=== PATIENT | male | born 1965 | race Caucasian/White ===

== ENCOUNTER 2017-10-18 12:06 | Inpatient (IN) | payer BC ==
[~2017-10-18] VITALS: Ht 182.9 cm; Wt 83.3 kg
--- NOTE | 2017-10-18 12:35 | EKG ---
[facility] [address] [place] [address] Test Date: 2017-10-18 Test Time: 12:19:47 Pat Name: OLGA BEAR Department: Room: Gender: Clinical Research Physician: : [id number] Requested By: MARS GLASS Order Number: [id number] Reading MD: Measurements Intervals [place] Rate: 53 P: 51 IN: 192 QRS: 73 QRSD: 80 T: 71 QT: 398 QTc: 375 Interpretive Statements SINUS RHYTHM NO SPECIFIC ECG ABNORMALITIES RI6.01 No previous ECG available for comparison
[2017-10-18 12:51] LABS: BASO % 1 % (0-3); EOS % 1 % (0-3); HEMATOCRIT 48.3 % (39.0-53.0); HEMOGLOBIN 16.2 g/dL (13.0-17.5); LYMPH # 1.7 x10^3/uL (1.0-4.8); LYMPH % 39 % (24-48); MEAN CORPUSCULAR HEMOGLOBIN 31 pg (25-35); MEAN CORPUSCULAR HGB CONC 33 g/dL (31-37); MEAN CORPUSCULAR VOLUME 91 fL (79-100); MONO % 10 % (0-9); NEUT % 49 % (31-73); PLATELET COUNT 197 x10^3/uL (140-400); RED BLOOD COUNT 5.29 x10^6/uL (4.30-5.70); RED CELL DISTRIBUTION WIDTH 13.3 % (11.5-14.5); WHITE BLOOD COUNT 4.5 x10^3/uL (4.0-11.0)
--- NOTE | 2017-10-18 13:35 | RAD ---
Indication: Chest pain and shortness of air. Time of exam 1324 hours. No prior studies are available for comparison. FINDINGS: The heart size is normal. The lungs are clear. No pleural effusion or pneumothorax is identified. The pulmonary vascularity is normal. IMPRESSION: No acute abnormality detected.
[2017-10-18 13:36] LABS: POTASSIUM ISTAT 4.1 mmol/L (3.5-5.0)
--- NOTE | 2017-10-18 13:44 | PHYS DOC ---
Past Medical History Past Medical History: Asthma Additional Past Medical Histor: PARKINSON'S DISEASE Past Surgical History: No Surgical History Alcohol Use: None Drug Use: None Adult General Chief Complaint Chief Complaint: chest pain HPI HPI Patient is a 52 year old male who presents with diffuse anterior chest pain with exertion. Patient states that he starts to develop this pain with lightheadedness and near syncope when he exerts himself. Yesterday he was walking up a mild incline symptoms started and they continued until the patient sat and rested. He's been experiencing this for several months, worsening in nature. No known cardiac disease, he does have associated shortness of breath and palpitations. He's not had a stress test, no known family history of early cardiac disease. He's been feeling well, does have a history of Parkinson's disease, only edition he sees his neurologist. He takes one medication for this. No history of PE or DVT. Review of Systems Review of Systems Constitutional: Denies fever or chills [] Eyes: Denies change in visual acuity, redness, or eye pain [] HENT: Denies nasal congestion or sore throat [] Respiratory: Denies cough or shortness of breath [] Cardiovascular: No additional information not addressed in HPI [] GI: Denies abdominal pain, nausea, vomiting, bloody stools or diarrhea [] : Denies dysuria or hematuria [] Musculoskeletal: Denies back pain or joint pain [] Integument: Denies rash or skin lesions [] Neurologic: Denies headache, focal weakness or sensory changes [] Allergies Allergies Allergies Coded Allergies Type Severity Reaction Last Updated Verified No Known Drug Allergies 10/18/17 No Physical Exam Physical Exam Constitutional: Well developed, well nourished, no acute distress, non-toxic appearance. [] HENT: Normocephalic, atraumatic, bilateral external ears normal, oropharynx moist, no oral exudates, nose normal. [] Eyes: PERRLA, EOMI, conjunctiva normal, no discharge. [] Neck: Normal range of motion, no tenderness, supple, no stridor. [] Cardiovascular:Heart rate regular with regular rhythm, no murmur [] Lungs & Thorax: Bilateral breath sounds clear to auscultation [] Abdomen: Bowel sounds normal, soft, no tenderness, no masses, no pulsatile masses. [] Skin: Warm, dry, no erythema, no rash. [] Back: No tenderness, no CVA tenderness. [] Extremities: No tenderness, no cyanosis, no clubbing, ROM intact, no edema. [] Neurologic: Alert and oriented X 3, normal motor function, normal sensory function, no focal deficits noted. [] Psychologic: Affect normal, judgement normal, mood normal. [] Current Patient Data Vital Signs Vital Signs Date Time Temp Pulse Resp B/P (MAP) Pulse Ox O2 Delivery O2 Flow Rate FiO2 10/18/17 12:10 97.2 58 18 132/84 (100) 98 Room Air 97.2 Lab Values Laboratory Tests Test 10/18/17 12:43 10/18/17 12:46 10/18/17 13:24 White Blood Count 4.5 x10^3/uL (4.0-11.0) Red Blood Count 5.29 x10^6/uL (4.30-5.70) Hemoglobin 16.2 g/dL (13.0-17.5) Hematocrit 48.3 % (39.0-53.0) Mean Corpuscular Volume 91 fL (79-100) Mean Corpuscular Hemoglobin 31 pg (25-35) Mean Corpuscular Hemoglobin Concent 33 g/dL (31-37) Red Cell Distribution Width 13.3 % (11.5-14.5) Platelet Count 197 x10^3/uL (140-400) Neutrophils (%) (Auto) 49 % (31-73) Lymphocytes (%) (Auto) 39 % (24-48) Monocytes (%) (Auto) 10 % (0-9) H Eosinophils (%) (Auto) 1 % (0-3) Basophils (%) (Auto) 1 % (0-3) Neutrophils # (Auto) 2.2 x10^3uL (1.8-7.7) Lymphocytes # (Auto) 1.7 x10^3/uL (1.0-4.8) Monocytes # (Auto) 0.4 x10^3/uL (0.0-1.1) Eosinophils # (Auto) 0.1 x10^3/uL (0.0-0.7) Basophils # (Auto) 0.0 x10^3/uL (0.0-0.2) POC Troponin I 0.00 ng/ml (<0.08) POC Hemoglobin 16.3 g/dL (14-18) POC Hematocrit 48 % (37-52) POC Sodium 140 mmol/L (135-145) POC Potassium 4.1 mmol/L (3.5-5.0) POC Chloride 102 mmol/L (98-110) POC Total CO2 29 mmol/L (23-32) Anion Gap 14 mmol/L (6-14) POC Blood Urea Nitrogen 15 mg/dL (8-26) POC Creatinine 1.0 mg/dL (0.5-1.4) Glucose Level 85 mg/dL (70-99) POC Ionized Calcium (Rebeca) 1.23 mmol/L (1.13-1.32) Laboratory Tests 10/18/17 12:43 Laboratory Tests 10/18/17 13:24 EKG EKG 53 bpm, sinus, normal axis, normal intervals, no ST elevation or depression, nonischemic T waves, there is a wandering baseline, not to be a flutter, interpreted by me[] Radiology/Procedures Radiology/Procedures CXr: IMPRESSION: No acute abnormality detected. [] Course & Med Decision Making Course & Med Decision Making Pertinent Labs and Imaging studies reviewed. (See chart for details) Not yet taken her aspirin today. His workup was negative but as patient continues to have recurrent symptoms, we will admit for further cardiac workup. Dr. Rendon accepted this patient for admission, cardiology consult was placed. Dragon Disclaimer Dragon Disclaimer This electronic medical record was generated, in whole or in part, using a voice recognition dictation system. Departure Departure Impression: Primary Impression: Chest pain Disposition: ADMITTED INPATIENT Admitting Physician: Shravan [place] Referrals: UNKNOWN PCP NAME (PCP) MARS GLASS MD Oct 18, 2017 13:44
[2017-10-18] MEDS ORDERED: ASPIRIN 325 MG TABLET PO ONE (13:45)
[2017-10-18] MEDS ORDERED: CARB1TAB2 PO (13:51)
[2017-10-18] MEDS ORDERED: RASA1TAB2 PO (13:52)
--- NOTE | 2017-10-18 14:05 | PDOC2 ---
CARDIAC CONSULT DATE OF CONSULT Date of Consult DATE: 10/18/17 TIME: 13:55 REASON FOR CONSULT Reason for Consult: chest pain REFERRING PHYSICIAN Referring Physician: Ariana SOURCE Source: Chart review, Patient HISTORY OF PRESENT ILLNESS HISTORY OF PRESENT ILLNESS This is a 52 yo male admitted for complains of chest pain. Reportedly he has been having chest discomfort primarily during exertion. Explains walking about 2 blocks and incline at times and verbalized chest pressure across but no jaw or arm discomfort. This is associated with some dizziness, nausea, and palpitations but no passing out. Also at time notable for photopsia and blurred vision. Also associated with GUTIERRES. This has been going on for quite sometime but it is occurring more often. It was a little unclear as far as the duration and extensiveness and timing of his symptoms as he could not verbally explained it to me with Panamanian being his primary language. All of these symptoms basically gets relieved with rest. Denies any past CAD, VTE, falls or any injury. Denies any vertigo, tinnitus during his episodes. 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 Presently while at rest, he denies any discomfort. PAST MEDICAL HISTORY Past Medical History Asthma and Parkinosn's disease PAST SURGICAL HISTORY Past Surgical History: Appendectomy FAMILY HISTORY Family History aneurysm 2 yrs ago Mother at 84 yo SOCIAL HISTORY Smoke: No ALCOHOL: occassional Drugs: None Lives: with Family ALLERGIES ALLERGIES: Coded Allergies: No Known Drug Allergies (Unverified , 10/18/17) ROS Review of System 14 point ROS evaluated with pertinent positives noted per HPI PHYSICAL EXAM General: Alert, Oriented X3, Cooperative, No acute distress HEENT: Atraumatic, Mucous membr. moist/pink Lungs: Clear to auscultation, Normal air movement Heart: Regular rate (SR), Normal S1, Normal S2, No murmurs Abdomen: Soft, No tenderness Extremities: No cyanosis, No edema Skin: No breakdown, No significant lesion Neuro: Normal speech, Sensation intact Psych/Mental Status: Mental status NL, Mood NL MUSCULOSKELETAL: Osteoarthritic changes both hands VITALS VITALS Vital Signs Date Time Temp Pulse Resp B/P (MAP) Pulse Ox O2 Delivery O2 Flow Rate FiO2 10/18/17 12:10 97.2 58 18 132/84 (100) 98 Room Air 97.2 LABS Lab: Laboratory Tests Test 10/18/17 12:43 10/18/17 12:46 10/18/17 13:24 White Blood Count 4.5 x10^3/uL (4.0-11.0) Red Blood Count 5.29 x10^6/uL (4.30-5.70) Hemoglobin 16.2 g/dL (13.0-17.5) Hematocrit 48.3 % (39.0-53.0) Mean Corpuscular Volume 91 fL (79-100) Mean Corpuscular Hemoglobin 31 pg (25-35) Mean Corpuscular Hemoglobin Concent 33 g/dL (31-37) Red Cell Distribution Width 13.3 % (11.5-14.5) Platelet Count 197 x10^3/uL (140-400) Neutrophils (%) (Auto) 49 % (31-73) Lymphocytes (%) (Auto) 39 % (24-48) Monocytes (%) (Auto) 10 % (0-9) Eosinophils (%) (Auto) 1 % (0-3) Basophils (%) (Auto) 1 % (0-3) Neutrophils # (Auto) 2.2 x10^3uL (1.8-7.7) Lymphocytes # (Auto) 1.7 x10^3/uL (1.0-4.8) Monocytes # (Auto) 0.4 x10^3/uL (0.0-1.1) Eosinophils # (Auto) 0.1 x10^3/uL (0.0-0.7) Basophils # (Auto) 0.0 x10^3/uL (0.0-0.2) Bedside Troponin I 0.00 ng/ml (<0.08) Bedside Hemoglobin 16.3 g/dL (14-18) Bedside Hematocrit 48 % (37-52) Bedside Sodium 140 mmol/L (135-145) Bedside Potassium 4.1 mmol/L (3.5-5.0) Bedside Chloride 102 mmol/L (98-110) Bedside Total CO2 29 mmol/L (23-32) Anion Gap 14 mmol/L (6-14) Bedside Blood Urea Nitrogen 15 mg/dL (8-26) Bedside Creatinine 1.0 mg/dL (0.5-1.4) Glucose Level 85 mg/dL (70-99) Bedside Ionized Calcium (Rebeca) 1.23 mmol/L (1.13-1.32) ASSESSMENT/PLAN ASSESSMENT/PLAN 1. Chest pain: typical features. initial troponin normal. EKG SR. 35% pretest probability for cad 2. Parkinson's disease: on home sinemet and azilect 3. Hx of asthma Recommendations 1. TTE. Check orthostasis 2. lipid panel, TSH, LFTs, trend troponin, Mg. 3. Discussed significantly regarding ischemic workup, Would prefer MPI if pending testings has no significant changes otherwise agrees with [facility] if warranted. Problems: LINH OROSCO PRODUCTION INTERN Oct 18, 2017 14:05
[2017-10-18 14:31] LABS: ALBUMIN 4.2 g/dL (3.4-5.0); DIRECT BILIRUBIN 0.1 mg/dL (0.0-0.2); TOTAL BILIRUBIN 0.7 mg/dL (0.2-1.0); TOTAL PROTEIN 8.2 g/dL (6.4-8.2)
[2017-10-18 14:35] LABS: CHOLESTEROL/HDL RATIO 3.3
[2017-10-18 15:05] VITALS: BP 123/57
--- NOTE | 2017-10-18 15:57 | CARD ---
APPROVED REPORT EXAM: Two-dimensional and M-mode echocardiogram with Doppler and color Doppler. Other Information Quality : Good INDICATION Chest Pain 2D DIMENSIONS RVDd2.5 (2.9-3.5cm)Left Atrium(2D)3.8 (1.6-4.0cm) IVSd0.7 (0.7-1.1cm)Aortic Root(2D)3.2 (2.0-3.7cm) LVDd4.5 (3.9-5.9cm)LVOT Diameter2.3 (1.8-2.4cm) PWd1.0 (0.7-1.1cm)LVDs2.7 (2.5-4.0cm) FS (%) 30.0 %SV67.3 ml LVEF(%)60.0 (>50%) Aortic Valve AoV Peak Daniel.135.6cm/sAoV VTI24.8cm AO Peak GR.7.4mmHgLVOT VTI 27.09cm AO Mean GR.3mmHgAVA (VTI)4.45cm2 Mitral Valve MV E Kxiqygpd33.5cm/sMV DECEL PPKU90kv MV A Irzzghrd45.6cm/sE/A Ratio2.1 TDI Lateral E' P. V14.29cm/sMedial E' P. V8.17cm/s E/Lateral E'7.0E/Medial E'12.2 Tricuspid Valve TR P. Prjxtjkf451qa/sRAP BODSYICE8lnJg TR Peak Gr.62pxRyZCNZ00vzNp Pulmonary Vein S1 Ifxqkmpq77.6cm/sS2 Mtquetfn76.24cm/s D2 Lfghjasi14.2cm/s LEFT VENTRICLE The left ventricle is normal size. There is normal left ventricular wall thickness. The left ventricu lar systolic function is normal. The Ejection Fraction is 50-55%. There is normal LV segmental wall m otion. The left ventricular diastolic function and filling is normal for age. RIGHT VENTRICLE The right ventricle is normal size. The right ventricular systolic function is normal. ATRIA The left atrium size is normal. The right atrium size is normal. The interatrial septum is intact wit h no evidence for an atrial septal defect or patent foramen ovale as noted on 2-D or Doppler imaging. AORTIC VALVE The aortic valve is normal in structure and function. Doppler and Color Flow revealed no significant aortic regurgitation. There is no significant aortic valvular stenosis. MITRAL VALVE The mitral valve is normal in structure and function. There is no evidence of mitral valve prolapse. There is no mitral valve stenosis. Doppler and Color-flow revealed trace mitral regurgitation. TRICUSPID VALVE The tricuspid valve is normal in structure and function. Doppler and Color Flow revealed trace to mil d tricuspid regurgitation. The PA pressure was estimated at 19 mmHg. There is no tricuspid valve sten osis. PULMONIC VALVE The pulmonary valve is normal in structure and function. Doppler and Color Flow revealed mild pulmoni c valvular regurgitation. There is no pulmonic valvular stenosis. GREAT VESSELS The aortic root is normal in size. The ascending aorta is normal in size. The IVC is normal in size a nd collapses >50% with inspiration. PERICARDIAL EFFUSION There is no evidence of significant pericardial effusion. Critical Notification Critical Value: No <Conclusion> The left ventricle is normal size. The left ventricular systolic function is normal. The Ejection Fraction is 50-55%. There is no significant aortic valvular stenosis. Doppler and Color Flow revealed no significant aortic regurgitation. Doppler and Color-flow revealed trace mitral regurgitation. Doppler and Color Flow revealed trace to mild tricuspid regurgitation. The PA pressure was estimated at 19 mmHg.
[2017-10-18 17:00] VITALS: BP_SYST 114; BP_SYST 118; BP_SYST 120; BP_DIAS 58; BP_DIAS 68; BP_DIAS 70
--- NOTE | 2017-10-18 18:19 | HP ---
ADMIT DATE: 10/18/2017 CHIEF COMPLAINT: Chest pain. 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 Basically, he has been having chest pain for 3 years. He states whenever he gets chest pain, he slows down, so it does not hurt so much. His mom did have coronary artery disease, were concerned he could be having a coronary event. I have discussed the case with ER physician. We are going to admit the patient and consult Cardiology. PAST MEDICAL HISTORY: Parkinson's. ALLERGIES: None. FAMILY HISTORY: Coronary artery disease. SOCIAL HISTORY: Does not drink, smoke or take drugs. 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 MEDICATIONS: Reviewed. REVIEW OF SYSTEMS: GENERAL: No history of weight change, weakness or fevers. SKIN: No bruising, hair changes or rashes. EYES: No blurred, double or loss of vision. NOSE AND THROAT: No history of nosebleeds, hoarseness or sore throat. HEART: He complaints of intermittent chest pain. LUNGS: Denies cough, hemoptysis, wheezing or shortness of breath. GASTROINTESTINAL: Denies changes in appetite, nausea, vomiting, diarrhea or constipation. GENITOURINARY: No history of frequency, urgency, hesitancy or nocturia. NEUROLOGIC: Denies history of numbness, tingling, tremor or weakness. PSYCHIATRIC: No history of panic, anxiety or depression. ENDOCRINE: No history of heat or cold intolerance, polyuria or polydipsia. EXTREMITIES: Denies muscle weakness, joint pain, pain on walking or stiffness. PHYSICAL EXAMINATION: VITAL SIGNS: Temperature afebrile, pulse 98, respirations 18, blood pressure 144/91. GENERAL: He is alert, cooperative. HEART: Normal S1, S2. LUNGS: Clear. ABDOMEN: Soft. EXTREMITIES: No edema. SKIN: No rashes. PSYCHIATRIC: He is stable. VASCULAR: Good capillary refill. ENDOCRINE: No thyromegaly. LYMPHATICS: No cervical nodes. HEMATOPOIETIC: No bruising. LABORATORY DATA: Troponin is 0. Liver function tests were normal. CBC is normal. Chest x-ray is normal. EKG is normal. Echocardiogram shows EF of 55%. ASSESSMENT AND PLAN: Chest pain, rule out coronary disease. The patient will be admitted. We will check serial enzymes, serial EKGs. Consult Cardiology, cardiac monitoring. ART MENJIVAR DO DR: Palomo JOB#: [id number] / [id number]
[2017-10-18 18:50] VITALS: BP 106/54
[2017-10-18] MEDS: CARBIDOPA/LEVODOPA 25/100MG TABLET PO SCH (20:49)
[2017-10-18 23:04] VITALS: BP 103/56
[2017-10-19 02:00] VITALS: BP 100/56
[2017-10-19 07:20] VITALS: BP 106/62
[2017-10-19] MEDS ORDERED: RASAGILINE 0.5 MG PO SCH (09:00)
[2017-10-19] MEDS: CARBIDOPA/LEVODOPA 25/100MG TABLET PO SCH ×2 (09:11→14:00)
--- NOTE | 2017-10-19 12:03 | PDOC ---
CARDIO Progress Notes Date and Time Date of Service 10/19/2017 Time of Evaluation 1150 Subjective Subjective: No Chest Pain, No shortness of breath, No Palpitations Vitals Vitals Vital Signs Date Time Temp Pulse Resp B/P (MAP) Pulse Ox O2 Delivery O2 Flow Rate FiO2 10/19/17 08:00 Room Air 10/19/17 07:20 97.7 56 18 106/62 (77) 98 97.7 Weight Weight [ ] Input and Output Intake and Output Intake and Output 10/19/17 06:59 Intake Total 700 ml Output Total 0 ml Balance 700 ml Intake Oral 700 ml Output Urine Total 0 ml Laboratory Labs Laboratory Tests Test 10/18/17 12:43 10/18/17 12:46 10/18/17 13:24 10/18/17 19:15 White Blood Count 4.5 x10^3/uL (4.0-11.0) Red Blood Count 5.29 x10^6/uL (4.30-5.70) Hemoglobin 16.2 g/dL (13.0-17.5) Hematocrit 48.3 % (39.0-53.0) Mean Corpuscular Volume 91 fL (79-100) Mean Corpuscular Hemoglobin 31 pg (25-35) Mean Corpuscular Hemoglobin Concent 33 g/dL (31-37) Red Cell Distribution Width 13.3 % (11.5-14.5) Platelet Count 197 x10^3/uL (140-400) Neutrophils (%) (Auto) 49 % (31-73) Lymphocytes (%) (Auto) 39 % (24-48) Monocytes (%) (Auto) 10 % (0-9) Eosinophils (%) (Auto) 1 % (0-3) Basophils (%) (Auto) 1 % (0-3) Neutrophils # (Auto) 2.2 x10^3uL (1.8-7.7) Lymphocytes # (Auto) 1.7 x10^3/uL (1.0-4.8) Monocytes # (Auto) 0.4 x10^3/uL (0.0-1.1) Eosinophils # (Auto) 0.1 x10^3/uL (0.0-0.7) Basophils # (Auto) 0.0 x10^3/uL (0.0-0.2) Total Bilirubin 0.7 mg/dL (0.2-1.0) Direct Bilirubin 0.1 mg/dL (0.0-0.2) Aspartate Amino Transf (AST/SGOT) 34 U/L (15-37) Alanine Aminotransferase (ALT/SGPT) 41 U/L (16-63) Alkaline Phosphatase 103 U/L (46-116) Total Protein 8.2 g/dL (6.4-8.2) Albumin 4.2 g/dL (3.4-5.0) Triglycerides Level 65 mg/dL (0-150) Cholesterol Level 182 mg/dL (0-200) LDL Cholesterol, Calculated 114 mg/dL (0-100) VLDL Cholesterol, Calculated 13 mg/dL (0-40) Non-HDL Cholesterol Calculated 127 mg/dL (0-129) HDL Cholesterol 55 mg/dL (40-60) Cholesterol/HDL Ratio 3.3 Thyroid Stimulating Hormone (TSH) 1.143 uIU/mL (0.358-3.74) Bedside Troponin I 0.00 ng/ml (<0.08) Bedside Hemoglobin 16.3 g/dL (14-18) Bedside Hematocrit 48 % (37-52) Bedside Sodium 140 mmol/L (135-145) Bedside Potassium 4.1 mmol/L (3.5-5.0) Bedside Chloride 102 mmol/L (98-110) Bedside Total CO2 29 mmol/L (23-32) Anion Gap 14 mmol/L (6-14) Bedside Blood Urea Nitrogen 15 mg/dL (8-26) Bedside Creatinine 1.0 mg/dL (0.5-1.4) Glucose Level 85 mg/dL (70-99) Bedside Ionized Calcium (Rebeca) 1.23 mmol/L (1.13-1.32) Troponin I Quantitative < 0.017 ng/mL (0.000-0.055) Test 10/18/17 22:10 10/19/17 01:15 Troponin I Quantitative < 0.017 ng/mL (0.000-0.055) < 0.017 ng/mL (0.000-0.055) Physical Exam HEENT: Neck Supple W Full Motion Chest: Symmetric LUNGS: Clear to Auscultation Heart: S1S2, RRR (SR/SB) Abdomen: Soft N/T Extremities: No Calf Tenderness Neurology: alert, oriented, follow commands Assessment Assessment 1. Chest pain: no symptoms during treadmill stress test. EF and wall motion normal 2. Parkinson's disease: on home sinemet and azilect 3. Possible autonomic dysfunction in relation to parkinsons. 4. Sinus bradycardia: No orthostasis. Notable for exertional dizziness. HR noted in the low 40s Potentially could be contributing to his other symptoms if MPI is unremarkable. Also Sinemet could also contribute to his symptoms Recommendations 1. No pauses, lowest HR recorded at 42. Will consider for event monitor 2. Await MPI results 3. Follow up with outpt neurology LINH OROSCO APRN Oct 19, 2017 12:03
--- NOTE | 2017-10-19 12:51 | PDOC ---
PROGRESS NOTES Chief Complaint Chief Complaint Chest Pain Asthma Parkinsons History of Present Illness History of Present Illness Pt sitting up in bed and talking pleasantly. Vitals Vitals Vital Signs Date Time Temp Pulse Resp B/P (MAP) Pulse Ox O2 Delivery O2 Flow Rate FiO2 10/19/17 08:00 Room Air 10/19/17 07:20 97.7 56 18 106/62 (77) 98 97.7 Physical Exam General: Alert, Oriented X3, Cooperative, No acute distress Heart: Regular rate (SR), Normal S1, Normal S2, No murmurs Labs LABS Laboratory Tests Test 10/18/17 13:24 10/18/17 19:15 10/18/17 22:10 10/19/17 01:15 Bedside Hemoglobin 16.3 g/dL (14-18) Bedside Hematocrit 48 % (37-52) Bedside Sodium 140 mmol/L (135-145) Bedside Potassium 4.1 mmol/L (3.5-5.0) Bedside Chloride 102 mmol/L (98-110) Bedside Total CO2 29 mmol/L (23-32) Anion Gap 14 mmol/L (6-14) Bedside Blood Urea Nitrogen 15 mg/dL (8-26) Bedside Creatinine 1.0 mg/dL (0.5-1.4) Glucose Level 85 mg/dL (70-99) Bedside Ionized Calcium (Rebeca) 1.23 mmol/L (1.13-1.32) Troponin I Quantitative < 0.017 ng/mL (0.000-0.055) < 0.017 ng/mL (0.000-0.055) < 0.017 ng/mL (0.000-0.055) Review of Systems Review of Systems Angina with exertion. Assessment and Plan Assessmemt and Plan ASSESSMENT Chest Pain Asthma Parkinsons PLAN Continue serial enzymes Continue serial EKGs Await further input from cardiology Consult PT/OT Continue with PCP after discharge Problems: Comment Review of Relevant I have reviewed the following items rakesh (where applicable) has been applied. Labs Laboratory Tests Test 10/18/17 12:43 10/18/17 12:46 10/18/17 13:24 10/18/17 19:15 White Blood Count 4.5 x10^3/uL (4.0-11.0) Red Blood Count 5.29 x10^6/uL (4.30-5.70) Hemoglobin 16.2 g/dL (13.0-17.5) Hematocrit 48.3 % (39.0-53.0) Mean Corpuscular Volume 91 fL (79-100) Mean Corpuscular Hemoglobin 31 pg (25-35) Mean Corpuscular Hemoglobin Concent 33 g/dL (31-37) Red Cell Distribution Width 13.3 % (11.5-14.5) Platelet Count 197 x10^3/uL (140-400) Neutrophils (%) (Auto) 49 % (31-73) Lymphocytes (%) (Auto) 39 % (24-48) Monocytes (%) (Auto) 10 % (0-9) Eosinophils (%) (Auto) 1 % (0-3) Basophils (%) (Auto) 1 % (0-3) Neutrophils # (Auto) 2.2 x10^3uL (1.8-7.7) Lymphocytes # (Auto) 1.7 x10^3/uL (1.0-4.8) Monocytes # (Auto) 0.4 x10^3/uL (0.0-1.1) Eosinophils # (Auto) 0.1 x10^3/uL (0.0-0.7) Basophils # (Auto) 0.0 x10^3/uL (0.0-0.2) Total Bilirubin 0.7 mg/dL (0.2-1.0) Direct Bilirubin 0.1 mg/dL (0.0-0.2) Aspartate Amino Transf (AST/SGOT) 34 U/L (15-37) Alanine Aminotransferase (ALT/SGPT) 41 U/L (16-63) Alkaline Phosphatase 103 U/L (46-116) Total Protein 8.2 g/dL (6.4-8.2) Albumin 4.2 g/dL (3.4-5.0) Triglycerides Level 65 mg/dL (0-150) Cholesterol Level 182 mg/dL (0-200) LDL Cholesterol, Calculated 114 mg/dL (0-100) VLDL Cholesterol, Calculated 13 mg/dL (0-40) Non-HDL Cholesterol Calculated 127 mg/dL (0-129) HDL Cholesterol 55 mg/dL (40-60) Cholesterol/HDL Ratio 3.3 Thyroid Stimulating Hormone (TSH) 1.143 uIU/mL (0.358-3.74) Bedside Troponin I 0.00 ng/ml (<0.08) Bedside Hemoglobin 16.3 g/dL (14-18) Bedside Hematocrit 48 % (37-52) Bedside Sodium 140 mmol/L (135-145) Bedside Potassium 4.1 mmol/L (3.5-5.0) Bedside Chloride 102 mmol/L (98-110) Bedside Total CO2 29 mmol/L (23-32) Anion Gap 14 mmol/L (6-14) Bedside Blood Urea Nitrogen 15 mg/dL (8-26) Bedside Creatinine 1.0 mg/dL (0.5-1.4) Glucose Level 85 mg/dL (70-99) Bedside Ionized Calcium (Rebeca) 1.23 mmol/L (1.13-1.32) Troponin I Quantitative < 0.017 ng/mL (0.000-0.055) Test 10/18/17 22:10 10/19/17 01:15 Troponin I Quantitative < 0.017 ng/mL (0.000-0.055) < 0.017 ng/mL (0.000-0.055) Laboratory Tests Test 10/18/17 13:24 10/18/17 19:15 10/18/17 22:10 10/19/17 01:15 Bedside Hemoglobin 16.3 g/dL (14-18) Bedside Hematocrit 48 % (37-52) Bedside Sodium 140 mmol/L (135-145) Bedside Potassium 4.1 mmol/L (3.5-5.0) Bedside Chloride 102 mmol/L (98-110) Bedside Total CO2 29 mmol/L (23-32) Anion Gap 14 mmol/L (6-14) Bedside Blood Urea Nitrogen 15 mg/dL (8-26) Bedside Creatinine 1.0 mg/dL (0.5-1.4) Glucose Level 85 mg/dL (70-99) Bedside Ionized Calcium (Rebeca) 1.23 mmol/L (1.13-1.32) Troponin I Quantitative < 0.017 ng/mL (0.000-0.055) < 0.017 ng/mL (0.000-0.055) < 0.017 ng/mL (0.000-0.055) Medications Current Medications Aspirin (Natalie Aspirin) 325 mg 1X ONCE PO Last administered on 10/18/17t 13: 45; Start 10/18/17 at 13:45; Stop 10/18/17 at 13:46; Status DC Carbidopa/Levodopa (Sinemet 25/100) 1 tab TID PO Last administered on 09:11; Start 10/18/17 at 21:00 Rasagiline (Azilect) 1 mg DAILY PO Last administered on 10/19/17 09:11; Start 10/19/17 at 09:00 Active Scripts Active Reported Azilect (Rasagiline Mesylate) 1 Mg Tablet 1 Mg PO Sinemet 25-100 Mg Tablet (Carbidopa/Levodopa) 1 Each Tablet 1 Tab PO TID Vitals/I & O Vital Sign - Last 24 Hours 10/18/17 10/18/17 10/18/17 10/18/17 14:25 15:05 16:14 17:00 Temp 97.6 97.6 Pulse 58 53 55 Resp 16 18 B/P (MAP) 125/89 (101) 123/57 (79) 120/58 (78) Pulse Ox 98 99 O2 Delivery Room Air Room Air Room Air 10/18/17 10/18/17 10/18/17 10/18/17 17:00 17:00 18:50 20:00 Temp 98.3 98.3 Pulse 56 65 69 Resp 16 B/P (MAP) 118/70 (86) 114/68 (83) 106/54 (71) Pulse Ox 95 O2 Delivery Room Air Room Air 10/18/17 10/19/17 10/19/17 10/19/17 23:04 02:00 07:20 08:00 Temp 98.2 98.2 97.7 98.2 98.2 97.7 Pulse 66 53 56 Resp 16 16 18 B/P (MAP) 103/56 (72) 100/56 (71) 106/62 (77) Pulse Ox 95 97 98 O2 Delivery Room Air Room Air Room Air Room Air Intake and Output 10/18/17 10/18/17 10/19/17 15:00 23:00 07:00 Intake Total 300 ml 400 ml Output Total 0 ml Balance 300 ml 400 ml ART MENJIVAR K III DO Oct 19, 2017 12:51
--- NOTE | 2017-10-19 14:08 | RAD ---
APPROVED REPORT Test Type: Exercise Stress Nurse/Tech: Marleni Vasquez R.N. Test Indications: Chest pain with exertion. Cardiac History: SEE EMR Medications: SEE EMR Medical History: Parkinson's Resting ECG: SB Resting Heart Rate: 59 bpm Resting Blood Pressure: 119/66mmHg Pretest Chest Pain: None Nurse/Tech Notes S1S2, lungs CTA, denied chest pain or SOA. Consent: The procedure was explained to the patient in lay terms. Informed consent was witnessed. Jp eout was entered into [employer]. History and Stress Test performed by Marleni Vasquez R.N. Stress Symptoms SOA. Pt tolerated the test well despite having a slight gait disturbance with Parkinson's. POST EXERCISE Reason for Termination: Reached target heart rate Target HR: 142 Max HR: 155 bpm 92% of Maximum Predicted HR: 168 bpm Exercise duration: 9:59 min:sec, 3 Stage Exercise capacity: 13.4METs Max Blood Pressure: 148/68mmHg Blood Pressure response to exercise: Normal blood pressure response during stress. Heart Rate response to exercise: Normal Chest Pain: No. Arrhythmia: No. INTERPRETATION Stress EKG Conclusion: The resting EKG shows a sinus rhythm with mild nonspecific ST segment changes including mild inferior ST elevation. The stress EKG shows no significant changes from baseline. No EKG evidence of stressed induced ischemia. Imaging Protocol IMAGE PROTOCOL: Rest Tc-99m/stress Tc-99m 1 day Rest: Stress: Viability: Radiopharm.Tc99m HbtfzjiouDe99j Sestamibi Qnfo02jBm 34mCi Img Date 10/19/2017 10/19/2017 Inj-Img [id number]. 60min. Rest Admin Site:IV - Left AntecubitalAdministrator:PARKER Galicia, ARRT (R)(N) Stress Admin Site: IV - Left AntecubitalAdministrator: Errol Fay, RT (R)(N) STRESS DATA End Diast. Vol.79.0mlAv. Heart Rate74.0bpm End Syst. Vol.9.0mlCO Index BSA0.0L/min Myocardial Zetw448.0gEject. Wledpnzf42.0% Stress Rates Pk. Fill Rate3.93EDV/secLVtime Pk. Fill 211.86msec Pk. Empty Rate4.80ESV/secLVtime Pk. Xccao426.12msec /3 Pk. Fill1.59EDV/sec Stress Scores Regional WT0.00Summed WT1.00 Regional WM0.00Summed WM0.00 LV Perfusion The stress scans showed no significant defects. The rest scans showed no significant defects. Nuclear imaging shows no reversible ischemia or infarct. Wall Motion Normal left ventricular systolic function with an ejection fraction of greater than 70%. LV Perf. Quant 17 Seg. SSS0.00 17 Seg. SRS0.00 17 Seg. SDS0.00 Stress Defect Extent (% LAD)0.00Rest Defect Extent (% LAD)0.00Rev. Defect Extent (% LAD)0.00 Stress Defect Extent (% LCX) 0.00Rest Defect Extent (% LCX)0.00Rev. Defect Extent (% LCX)0.00 Stress Defect Extent (% RCA)0.00Rest Defect Extent (% RCA)0.00Rev. Defect Extent (% RCA)0.00 Stress Defect Extent (% BLAYNE)0.00Rest Defect Extent (% BLAYNE)0.00Rev. Defect Extent (% BLAYNE)0.00 Conclusion 1. Good exercise tolerance with the patient walking for 9 minutes and 59 seconds on a Lars protocol. 2. No chest pain with exertion. 3. No EKG evidence of stressed induced ischemia. 4. Nuclear imaging shows no reversible ischemia or infarct. 5. Normal left ventricular systolic function with an ejection fraction of greater than 70%. 6. Low risk treadmill nuclear stress test.
[2017-10-19 14:50] VITALS: BP 114/70
== END 2017-10-19 16:20 | disposition home or self-care (01) | DRG 313 ==
LOC: ER 12:06 → 2 SOUTH 13:15
PROVIDERS: ADMIT Internal Medicine; ATTEND Internal Medicine
DX: R07.89 Other chest pain (principal); G20 Parkinson's disease; H53.19 Other subjective visual disturbances; J45.909 Unspecified asthma, uncomplicated; Z82.49 Family history of ischemic heart disease and other diseases of the circulatory system
CPT/HCPCS: 36415; 71020; 78452; 80047; 80061; 80076; 84443; 84484; 85025; 93005; 93017; 93306; 96374; 96376; A9500; 99285-25